=== PATIENT | male | born 1950 | race Caucasian/White ===

== ENCOUNTER 2018-08-11 11:22 | Emergency (ER) | payer OTHER, MEDICARE ==
[~2018-08-11] VITALS: Ht 175.3 cm; Wt 81.7 kg
[2018-08-11 12:29] LABS: BASOPHILS ABSOLUTE AUTO 0.04 K/mm3 (0.00-0.23); BASOPHILS PERCENT AUTO 1 % (0-2); EOSINOPHILS ABSOLUTE AUTO 0.21 K/mm3 (0.00-0.68); EOSINOPHILS PERCENT AUTO 3 % (0-6); Hematocrit 37.6 % (37.0-53.0); Hemoglobin 13.1 g/dL (13.5-17.5); IMMATURE GRAN ABSOLUTE AUTO 0.02 K/mm3 (0.00-0.10); IMMATURE GRAN PERCENT AUTO 0 % (0-1); LYMPHOCYTES ABSOLUTE AUTO 1.18 K/mm3 (0.84-5.20); LYMPHOCYTES PERCENT AUTO 17 % (21-46); MONOCYTES ABSOLUTE AUTO 0.37 K/mm3 (0.16-1.47); MONOCYTES PERCENT AUTO 6 % (4-13); Mean Corpuscular HGB 33.4 pg (26.0-34.0); Mean Corpuscular HGB Conc 34.8 g/dL (31.5-36.5); Mean Corpuscular Volume 96 fL (80-100); NEUTROPHILS ABSOLUTE AUTO 4.95 K/mm3 (1.96-9.15); NEUTROPHILS PERCENT AUTO 73 % (41-73); Platelet Count 94 K/mm3 (150-400); RDW Coefficient Variation 13.4 % (11.7-14.2); Red Blood Cell Count 3.92 M/mm3 (4.30-5.90); White Blood Cell Count 6.77 K/mm3 (4.00-11.30)
[2018-08-11 12:35] LABS: Alanine Aminotransfer (ALT/SGP 23 U/L (12-78); Albumin, Blood 3.8 g/dL (3.4-5.0); Albumin/Globulin Ratio 1.3 (0.8-1.8); Alk Phos 54 U/L (50-136); Anion Gap 7 mmol/L (6-16); Aspartate Aminotrans (AST/SGOT 17 U/L (12-37); Bilirubin, Total 0.6 mg/dL (0.1-1.0); Blood Urea Nitrogen 20 mg/dL (8-24); Bun/Creatinine Ratio 17.2 (12.0-20.0); CO2, Blood 28 mmol/L (21-32); Calcium, Blood 8.4 mg/dL (8.5-10.1); Chloride, Blood 110 mmol/L (98-108); Creatinine, Blood 1.16 mg/dL (0.60-1.20); Free Thyroxine 0.94 ng/dL (0.70-1.60); Glomerular Filtration Rate >60 (60-); Glucose, Blood 110 mg/dL (70-99); Potassium, Blood 3.8 mmol/L (3.5-5.5); Sodium, Blood 145 mmol/L (136-145); Total Protein, Blood 6.8 g/dL (6.4-8.2); Troponin I 0.018 ng/mL (0.000-0.040)
== END 2018-08-11 13:08 | disposition home or self-care (01) ==
LOC: ER 11:22
PROVIDERS: Physician Assistant
DX: R42 Dizziness and giddiness (principal); I10 Essential (primary) hypertension; I25.10 Atherosclerotic heart disease of native coronary artery without angina pectoris
CPT/HCPCS: 80053; 84439; 84443; 84484; 85025; 93005; 93010; 99284-25; J7030